=== PATIENT | female | born 1950 | race Caucasian/White ===

== ENCOUNTER 2016-06-07 08:11 | Outpatient (RCR) | payer MEDICARE, MEDICAID ==
[2015-06-27 14:51] VITALS: BP 196/76
[~2016-06-07 08:11] MED LIST: ACIDOPHILUS PRO1 CAP PO; AMARYL4 MG; ARTIFICIAL TEA1 EAC1 OP; ATIVAN0.5 MG PO; BACTROBAN22 TOP; BENADRYL PO; BOTT PO; BYDUREON P2 MG/0.65 SQ; BYDUREON2 MG SC; CALCIUM CARBONATE PO; CARAFATE PO; CELEBREX PO; CELEBREX200 MG; CELEXA 20MG20 MG/TA1 PO; CETAPHIL CREAM454 GM TOP; COLACE 100100 MG/CAP PO; COMPAZINE10 MG; COUMADIN 5MG5 MG/TAB PO; DEXTROSE 525 GM/50 M IV; DILAUDID 2MG TAB2 MG PO; DURAGESIC50 MCG/PAT TD; FENTANYL; FEOSOL325 MG PO; GABAPENTIN PO; GABAPENTIN300 MG; GLUCAGEN DIAGNOS1 MG IM; GLUCAGEN1 MG IJ; GLUCOPHAGE850 MG/TA1 PO; GOOD NEIGHBOR P81 MG; HEPARIN 50500 U/5 ML IV; HUMALOG PEN100 U/ML SC; HUMALOG100 U/ML SQ; INSULIN HUMA U SC; INSULIN HUMA100 U/ML SC; LANTUS PEN100 U/ML SC; LANTUS100 U/ML SC; LANTUS100 U/ML SQ; LASIX 40MG TABL40 MG PO; MAXALT10 M2 PO; MIRALAX 17GM PK1 PKT PO; MIRALAX PA17 GM/Dose PO; MOBIC15 MG PO; NATURE'S BLEND F1 MG PO; NORCO 325 MG-51 TA1; NS INT FLUSH 1010 ML IV; ONDANSETRON HYDR4 M1 PO; ONDANSETRON4 M1 PO; ONE DAILY MAXI1 EAC1 PO; OSCAL 500 TAB500 MG PO; OXYCODONE PO; OXYCODONE5 MG PO; PEPCID 20MG TAB20 MG PO; PHENERGAN50 MG/SUPP RC; PREDNISONE10 M1 PO; PREDNISONE20 MG PO; PRILOSEC 20MG20 MG PO; Patient's Own Medication MM; Patient's Own Medication PO; REMOVE FENTANYL TD; SANTYL TP; SYNTHROID0.075 MG/T PO; THERAGRAN TAB1 UDTAB PO; TOPIRAMATE; TYLENOL 325MG325 M1; TYLENOL 325MG325 MG PO; ULORIC40 MG PO; ULTRAM 50MG TAB50 MG PO; ULTRAM50 MG PO; VITAMIN C500 MG PO; VITAMIN D 1001000 IU PO; XANAX .25M0.25 MG/TA PO; XANAX 0.5MG0.5 MG PO; XIFAXAN550 MG PO; ZANTAC150 M1 PO; ZESTORETIC 25 M1 TAB; ZINC SO4 PO; [UNRECOGNIZED DRUG - OTHER] PO; [UNRECOGNIZED DRUG - OTHER] SC; [UNRECOGNIZED DRUG - OTHER] SC
== END 2016-07-05 13:10 ==
LOC: OPPGERO 08:11
DX: F33.1 Major depressive disorder, recurrent, moderate (principal); F41.1 Generalized anxiety disorder

== ENCOUNTER → 2016-06-10 | Outpatient (CLI) | payer MEDICARE, MEDICAID | LOC: LAB 06:40 | DX: K74.69 Other cirrhosis of liver (principal); K74.60 Unspecified cirrhosis of liver; E11.9 Type 2 diabetes mellitus without complications; E13.9 Other specified diabetes mellitus without complications ==

== ENCOUNTER → 2016-06-15 | Outpatient (CLI) | payer MEDICARE, MEDICAID | LOC: LAB 06:49 | DX: R30.0 Dysuria (principal); R82.90 Unspecified abnormal findings in urine ==

== ENCOUNTER 2016-07-06 08:26 | Outpatient (RCR) | payer MEDICARE, MEDICAID ==
[2015-06-27 14:51] VITALS: BP 196/76
== END 2016-08-02 10:18 ==
LOC: OPPGERO 08:26
DX: F33.1 Major depressive disorder, recurrent, moderate (principal); F41.1 Generalized anxiety disorder

== ENCOUNTER → 2016-07-27 | Outpatient (CLI) | payer MEDICARE, MEDICAID | LOC: LAB 06:01 | DX: N18.3 Chronic kidney disease, stage 3 (moderate) (principal) ==

== ENCOUNTER 2016-08-03 07:07 | Outpatient (RCR) | payer MEDICARE, MEDICAID ==
[2015-06-27 14:51] VITALS: BP 196/76
== END 2016-09-02 15:13 ==
LOC: OPPGERO 07:07
DX: F33.1 Major depressive disorder, recurrent, moderate (principal); F41.1 Generalized anxiety disorder